=== PATIENT | male | born 1970 | race Two or more races ===

== ENCOUNTER → 2024-12-07 | Outpatient (CLI) | payer MEDICARE, MEDICAID, SELFPAY ==
--- NOTE | 2024-12-07 07:15 | XR_ITS ---
Examination: Abdomen sonogram, complete Date and time of exam: December 07, 2024 0749 hours INDICATIONS: Cirrhosis diagnosis, liver disease. Technique: Multiple real-time grayscale transabdominal sonographic images of the abdomen have been obtained. Findings: Contracted gallbladder Common bile duct 0.2 cm Pancreatic head 2.8 cm Aorta not enlarged Liver 11.4 cm irregular contour fatty infiltration Normal hepatopedal portal venous flow Patent IVC Right kidney 9.3 cm in the cortex 1.5 cm Left kidney 11.2 cm renal cortex 1.6 cm Mild renal parenchymal scar formation Splenomegaly 14.4 cm IMPRESSION: Recommend repeating the gallbladder portion of the study with fasting
== END | disposition home or self-care (01) ==
LOC: CDIM 07:16
PROVIDERS: Referring Provider Internal Medicine; Visit Provider Internal Medicine
DX: K74.60 Unspecified cirrhosis of liver (principal)
CPT/HCPCS: 76700

== ENCOUNTER 2025-03-10 04:45 | Emergency (ER) | payer MEDICARE, MEDICAID, SELFPAY ==
[2025-03-10 04:52] VITALS: BP 124/74; PULSE 69; RESP 18; TEMP 36.6; O2SAT 97
--- NOTE | 2025-03-10 05:48 | PD.EDRME ---
Rapid Medical Screening Exam [facility] Arrival date/time: 03/10/25 04:45 54M with history of alcoholic cirrhosis and DM presents to ED with 1 day of epigastric pain and N/V. Patient denies CP and SOB. Chief Complaint: Abdominal Pain Vital signs: Vital Signs Temperature 97.8 F 03/10/25 04:52 Pulse Rate 69 03/10/25 04:52 Respiratory Rate 18 03/10/25 04:52 Blood Pressure 124/74 03/10/25 04:52 Pulse Oximetry (%) 97 03/10/25 04:52 Oxygen Delivery Method Room Air 03/10/25 04:52
[2025-03-10] MEDS: FAMOTIDINE 20 MG TABLET 40 MG PO (06:05)
[2025-03-10] MEDS: ONDANSETRON ODT 4 MG TABRAP PO (06:05)
[2025-03-10] MEDS: MG HYD/AL HYD/SIME (Maalox Reg) SUSP 30 ML UDC PO (06:07)
[2025-03-10 06:10] LABS: Collection Type, Urine Clean Catch
[2025-03-10 06:26] LABS: Amorphous Crystals,Urine Present (Absent); Bacteria,Urine Rare; Bilirubin,Urine Negative (Negative); Blood,Urine 2+ (Negative); Clarity,Urine Clear (Clear/Hazy); Color,Urine Yellow (Lt Yel-Yel); Culture Indicated,Urine Not Indicated; Glucose, Urine 4+ (Negative); Ketones,Urine Negative (Negative); Leukocyte Esterase,Urine Negative (Negative); Nitrite,Urine Negative (Negative); PH,Urine 6.0 (5.0-7.0); Protein,Urine Trace (Neg - Trace); RBC,Urine 42 /hpf (0-3); Specific Gravity,Urine 1.049 (1.001-1.035); Squamous Epithelial Cell,Urine 1 /hpf (0-5); Urobilinogen,Urine 3.0 mg/dL (0.0-1.0); WBC,Urine < 1 /hpf (0-5)
[2025-03-10 06:27] LABS: Amphetamine/Methamp Scrn,U Negative (Negative); Barbiturate Screen,Urine Negative (Negative); Benzodiazepines Screen,Urine Negative (Negative); Benzoylecgonine Screen, Ur Negative (Negative); Fentanyl Screen,Urine Negative (Negative); Opiate Screen,Urine Negative (Negative); THC Screen,Urine Negative (Negative)
--- NOTE | 2025-03-10 06:27 | PD.EDABDPN ---
ED Abdominal Pain RME/HPI General Chief Complaint: Abdominal Pain Stated complaint: UPPER ABD PAIN SINCE YESTERDAY Arrival date/time: 03/10/25 04:45 Limitations: no limitations and language barrier RME / HPI RME / HPI narrative: 03/10/25 04:45 54M with history of alcoholic cirrhosis and DM presents to ED with 1 day of epigastric pain and N/V. Patient denies CP and SOB. No vomiting. No fevers. He has had less severe prior episodes of this in the past. He denies current use of alcohol. Related Data Home Medications ?Medication ?Instructions ?Recorded ?Confirmed insulin glargine 100 unit/mL (3 20 unit subcut QAM 04/23/21 10/27/23 mL) subcutaneous pen (Basaglar KwikPen U-100 Insulin) metformin 500 mg tablet 500 mg PO BID 04/23/21 10/27/23 Nf Vitamin B1 100 mg PO QDAY 02/04/23 10/27/23 ferrous sulfate 325 mg (65 mg 325 mg PO QDAY 02/04/23 10/27/23 iron) tablet (FeroSul) lactulose 10 gram/15 mL oral syrup 30 g PO BID 02/04/23 10/27/23 tamsulosin 0.4 mg capsule 0.4 mg PO QDAY 02/04/23 10/27/23 folic acid 1 mg tablet 1 mg PO QDAY 10/27/23 10/27/23 rifaximin 550 mg tablet (Xifaxan) 550 mg PO BID 10/27/23 10/27/23 Previous Rx's ?Medication ?Instructions ?Recorded pantoprazole 40 mg tablet,delayed 40 mg PO QDAY 30 days #30 tabs 02/14/23 release pantoprazole 40 mg tablet,delayed 40 mg PO QDAY #30 tabs 03/10/25 release (Protonix) Allergies Allergy/AdvReac Type Severity Reaction Status Date / Time No Known Allergies Allergy Verified 03/10/25 04:46 Review of Systems Review of Systems Systems Reviewed: All systems reviewed, normal except as documented Past Medical History Past Medical History GASTROINTESTINAL: Positive Gastrointestinal Disorders, Cirrhosis, Gastrointestinal Bleed, Esophageal Varices and Gastroesophageal Reflux Disease GENITOURINARY: Positive Genitourinary Disorders and Kidney Stones ENDOCRINE: Positive Endocrine Disorders and Diabetes Mellitus Type 2 Family History FAMILY HISTORY: Negative Family Cardiac Disorders Social History SMOKING STATUS: Former smoker SECOND HAND EXPOSURE: No SUBSTANCE USE: former substance user ED Exam Narrative Physical exam: Generally the patient is alert in no obvious distress. Heart regular rate and rhythm lungs clear to auscultation equal bilaterally abdomen soft bowel sounds present nondistended minimal epigastric abdominal tenderness without rebound. Neurologic exam no focal motor or sensory deficits cranial nerves II through XII are grossly intact. Patient is ambulatory without difficulty. He is alert and oriented x 4. General Limitations: Present no limitations and language barrier Course Quality Measures none Orders Category Date Time Status Alcohol, Blood Medical Stat Lab 03/10/25 06:30 Completed CBC Stat Lab 03/10/25 06:30 Completed CMP [Comprehensive Metabolic Panel] Stat Lab 03/10/25 06:30 Completed Drug Screen,Urine Stat Lab 03/10/25 05:50 Completed Lipase Stat Lab 03/10/25 06:30 Completed Urinalysis, C/S if Indicated Stat Lab 03/10/25 05:50 Completed Famotidine [Pepcid] Med 03/10/25 05:47 Discontinued 40 mg PO X1 ONE Lidocaine 2% Viscous [Xylocaine 2% Viscous] Med 03/10/25 06:26 Discontinued 15 ml PO X1 ONE Ondansetron Odt [Zofran Odt] Med 03/10/25 05:47 Discontinued 4 mg PO X1 ONE mg Hyd/Al Hyd/Dimitry Susp [Maalox Susp] Med 03/10/25 05:47 Discontinued 30 ml PO X1 ONE mg Hyd/Al Hyd/Dimitry Susp [Maalox Susp] Med 03/10/25 06:26 Discontinued 30 ml PO X1 ONE Vital Signs Vital signs: Vital Signs Temperature 97.8 F 03/10/25 04:52 Pulse Rate 69 03/10/25 04:52 Respiratory Rate 18 03/10/25 04:52 Blood Pressure 124/74 03/10/25 04:52 Pulse Oximetry (%) 97 03/10/25 04:52 Oxygen Delivery Method Room Air 03/10/25 04:52 Abdominal Pain MDM MDM Narrative MDM Narrative:: I interpreted all labs. There was no significant abnormality. Patient has mild microscopic hematuria which may be due to the fact that the patient is thrombocytopenic. There is no urine infection. Patient received 30 cc of Maalox and 15 cc of viscous lidocaine with improvement. Patient's pain is epigastric. Patient is not currently drinking alcohol. Patient most likely has a gastritis. Abdominal exam is actually quite benign. There was no obvious fluid wave. Patient will be stable for discharge to take Protonix as prescribed. Avoid hot spicy greasy fatty foods. Follow-up with his doctor. Return to ER as needed or if condition worsens. Patient data External records reviewed:: [facility] previous records Clinical information provided by:: patient Social determinants that could affect healthcare access:: none Patient has the following chronic illnesses:: Hepatic cirrhosis How is presenting disease/condition affected by chronic disease/condition?: uneffected by Evaluation data The following diagnostics were reviewed and interpreted by me:: lab results Lab and/or radiology exams considered but not ordered:: None Interpretation Summary: I interpreted all labs Medications / Prescriptions Medications or Prescriptions considered but not ordered:: None Medication administrations:: Medication Administration History Discontinued Medications Al Hydrox/Mg Hydrox/Simethicone (Mg Hyd/Al Hyd/Dimitry (Maalox Reg) Susp 30 Ml Udc) 30 ml PO X1 ONE Stop: 03/10/25 05:48 Last Admin: 03/10/25 06:07 Dose: 30 ml Documented By: CVL Al Hydrox/Mg Hydrox/Simethicone (Mg Hyd/Al Hyd/Dimitry (Maalox Reg) Susp 30 Ml Udc) 30 ml PO X1 ONE Stop: 03/10/25 06:27 Famotidine (Famotidine 20 Mg Tablet) 40 mg PO X1 ONE Stop: 03/10/25 05:48 Last Admin: 03/10/25 06:05 Dose: 40 mg Documented By: CVL Lidocaine HCl (Lidocaine Viscous 2% 15 Ml Udc) 15 ml PO X1 ONE Stop: 03/10/25 06:27 Ondansetron HCl (Ondansetron Odt 4 Mg Tabrap) 4 mg PO X1 ONE; Protocol Stop: 03/10/25 05:48 Last Admin: 03/10/25 06:05 Dose: 4 mg Documented By: CVL See above Consultations Consultation(s) initiated? (list below): No Diagnosis Differential diagnosis abdominal pain: abdominal pain Most likely diagnosis given after review of the tests above:: Abdominal pain Admission Indicated Admission indicated?: not indicated Admission Request Was there a request for admission?: No Disposition Plan Disposition Plan: Discharge Discharge Attestation Discharge Attestation: The patient and all family members were given an opportunity to ask questions and understood the discharge instructions. Discharge instructions specifically effects, indications for sooner follow up or return to the emergency department, and the expected course of current diagnosis. Patient condition: Stable Discharge Plan Plan Patient Disposition: HOME (Self Care) Prescriptions/Referrals Prescriptions/Med Rec: New pantoprazole [Protonix] 40 mg tablet,delayed release (DR/EC) 40 mg PO QDAY Qty: 30 0RF No Action metformin 500 mg Tablet 500 mg PO BID insulin glargine [Basaglar KwikPen U-100 Insulin] 100 unit/mL (3 mL) Insulin Pen 20 unit SUBCUT QAM lactulose 10 gram/15 mL Syrup 30 g PO BID Rx Instructions: 30mls daily ferrous sulfate [FeroSul] 325 mg (65 mg iron) Tablet 325 mg PO QDAY Nf Vitamin B1 100 mg PO QDAY tamsulosin 0.4 mg capsule 0.4 mg PO QDAY Patient Comments: TAKE 1 CAPSULE BY MOUTH AT BEDTIME pantoprazole 40 mg Tablet,Delayed Release (Dr/Ec) 40 mg PO QDAY 30 Days Qty: 30 0RF folic acid 1 mg Tablet 1 mg PO QDAY Xifaxan 550 mg tablet 550 mg PO BID Patient Comments: TAKE 1 TABLET BY MOUTH TWICE A DAY FOR 30 DAYS Referrals: Dannie Hart MD [Primary Care Provider] - In 1 week Problem List Clinical Impression: Gastritis, Hepatic cirrhosis, Asymptomatic microscopic hematuria, Thrombocytopenia Patient/Caregiver Discharge Instructions Additional Instructions: Avoid alcohol. Avoid hot spicy greasy fatty foods. Protonix as prescribed. Follow-up with your doctor. Return to ER as needed or if condition worsens. Print Language: Stateless Stand Alone Forms: [employer] Award Info., Patient Portal Info Letter
[2025-03-10 06:48] LABS: Basophils # (Auto) 0.0 Thou/mm3 (0.0-0.2); Basophils % (Auto) 0 % (0-2.5); Eosinophils # (Auto) 0.0 Thou/mm3 (0.0-0.5); Eosinophils % (Auto) 0 % (0-10); Hematocrit 44.3 % (41.0-53.0); Hemoglobin 17.0 g/dL (13.5-16.0); Immature Granulocytes Auto 0.01 Thou/mm3 (0.00-0.00); Lymphocytes # (Auto) 0.8 Thou/mm3 (1.0-4.8); Lymphocytes % (Auto) 15 % (10-50); Mean Corpuscular HGB Conc 38.4 g/dl (31.0-37.0); Mean Corpuscular Hemoglobin 32.8 pg (25.0-35.0); Mean Corpuscular Volume 85 fL (80-100); Monocytes # (Auto) 0.4 Thou/mm3 (0.0-0.8); Monocytes % (Auto) 6 % (0-12); Neutrophils # (Auto) 4.3 Thou/mm3 (1.8-7.7); Neutrophils % (Auto) 78 % (37-80); Nucleated Red Blood Cell # 0.00 Thou/mm3 (0.00-0.00); Nucleated Red Blood Cell % 0 /100 WBC (0); Platelet Count 95 Thou/mm3 (140-440); RDW Standard Deviation 39.6 fL (35.1-43.9); Red Blood Count 5.19 Miln/mm3 (4.50-5.90); White Blood Count 5.5 Thou/mm3 (3.8-10.6)
[2025-03-10 07:01] LABS: Alanine Aminotransferase 27 U/L (10-49); Albumin, Serum 3.8 gm/dL (3.5-5.0); Albumin/Globulin Ratio 1.1 (1.2-2.2); Alcohol, Blood Medical < 3.0 mg/dL (0-10.0); Alkaline Phosphatase 155 U/L (46-116); Anion Gap 11 (7-16); Aspartate Amino Transferase 39 U/L (0-34); BUN/Creatinine Ratio 10 Ratio (12-20); Bilirubin,Total 1.7 mg/dL (0.3-1.2); Blood Urea Nitrogen 9 mg/dL (9-23); Calcium 9.7 mg/dL (8.3-10.6); Calcium (Corrected) 9.9 mg/dL (8.5-10.1); Carbon Dioxide 26.2 mMol/L (20.0-31.0); Chloride 104 mMol/L (98-107); Creatinine (Component) 0.9 mg/dL (0.6-1.3); Globulin 3.5 gm/dL (2.3-3.5); Glucose 311 mg/dL (74-106); Lipase 43 U/L (12-53); Osmolality,Calculated 291 (275-295); Potassium 4.3 mMol/L (3.4-5.1); Sodium 141 mMol/L (136-145); Total Protein 7.3 gm/dL (5.7-8.2); eGFR > 60 See Note
--- NOTE | 2025-03-10 08:32 | PC.NURSE ---
pt not found in or outside of ED x3. pt eloped.
== END 2025-03-10 08:33 | disposition left against medical advice (07) ==
PROVIDERS: Physician Assistant; Emergency Provider Emergency Medicine; PCP Family Medicine
DX: K29.70 Gastritis, unspecified, without bleeding (principal); K74.60 Unspecified cirrhosis of liver; R31.21 Asymptomatic microscopic hematuria; D69.6 Thrombocytopenia, unspecified; Z53.29 Procedure and treatment not carried out because of patient's decision for other reasons
CPT/HCPCS: 36415; 80053; 80307; 80320; 81001; 83690; 85025; 99283; Q0162; A9270; G0480